=== PATIENT | male | born 2000 | race Caucasian/White ===

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

== ENCOUNTER → 2018-07-09 | Outpatient (CLI) | payer BC | LOC: BMCIMAGING 15:43 | PROVIDERS: ATTEND Family Medicine | DX: S62.392A Other fracture of third metacarpal bone, right hand, initial encounter for closed fracture (principal) ==